=== PATIENT | male | born 1985 | race African-American/Black ===

== ENCOUNTER → 2017-04-19 | Outpatient (CLI) | payer OTHER ==
--- NOTE | 2017-04-20 14:24 | ECHOF ---
Referral Reason:Sleep Apnea HTN HEART FAILURE MEASUREMENTS -------- HEIGHT: 190.5 cm WEIGHT: 190.5 kg BP: 146/81 RVIDd: 2.9 cm (< 3.3) IVSd: 1.7 cm (0.6 - 1.1) LVIDd: 5.1 cm (3.9 - 5.3) LVPWd: 1.7 cm (0.6 - 1.1) IVSs: 2.1 cm LVIDs: 3.3 cm LVPWs: 2.1 cm LA Diam: 3.5 cm (2.7 - 3.8) Ao Diam: 3.4 cm (2.0 - 3.7) AV Cusp: 3.0 cm (1.5 - 2.6) MV EXCURSION: 22.907 mm (> 18.000) MV EF SLOPE: 100 mm/s (70 - 150) EPSS: 0.7 cm MV E Tor: 1.18 m/s MV DecT: 238 ms MV A Tor: 0.62 m/s MV E/A Ratio: 1.91 FINDINGS -------- Sinus rhythm. This was a technically good study. The left ventricular size is normal. There is severe concentric left ventricular hypertrophy. Ove rall left ventricular systolic function is normal with, an EF between 55 - 60 %. The right ventricle is normal in size. The left atrial size is normal. The right atrium is normal in size. The aortic valve was not well visualized. Mild mitral annular calcification present. The tricuspid valve appears structurally normal. There is no pulmonic regurgitation present. The aortic root size is normal. IVC Not well visulized. There is no pericardial effusion. CONCLUSIONS -------- 1. Sinus rhythm. 2. This was a technically good study. 3. The left ventricular size is normal. 4. There is severe concentric left ventricular hypertrophy. 5. Overall left ventricular systolic function is normal with, an EF between 55 - 60 %. 6. The right ventricle is normal in size. 7. The left atrial size is normal. 8. The right atrium is normal in size. 9. The aortic valve was not well visualized. 10. Mild mitral annular calcification present. 11. The tricuspid valve appears structurally normal. 12. There is no pulmonic regurgitation present. 13. The aortic root size is normal. 14. IVC Not well visulized. 15. There is no pericardial effusion. SCIENTIFIC SOFTWARE DEVELOPER: Mendy Parker RDCS
== END | disposition home or self-care (01) ==
LOC: RADECHMAIN 15:46
PROVIDERS: ATTEND Specialist
DX: I51.7 Cardiomegaly (principal); I05.8 Other rheumatic mitral valve diseases; G47.30 Sleep apnea, unspecified
CPT/HCPCS: C8929; Q9957; 93306

== ENCOUNTER → 2017-05-18 | Outpatient (CLI) | payer OTHER ==
--- NOTE | 2017-05-18 17:57 | PN ---
PROGRESS NOTE This is a 31-year-old, male patient with severe symptomatic obstructive sleep apnea. The patient was diagnosed having sleep apnea back in 2016 and back then the patient was found to have an AHI of 108. The patient was given a CPAP/BiPAP titration that was not optimal as the patient continued to have obstructive respiratory events. He was unable to tolerate the BiPAP and was having ongoing difficulties despite the various pressures that have been utilized. His BiPAP machine was set at a EPAP of 10, pressure support of 4 with a maximum pressure of 24 cm of water. He was given Nancy View full-face mask. At a later stage the patient came for a Pap nap and further adjustments were done. The patient was discharged and he was lost to followup until today when he comes into the sleep center and he is quite symptomatic from his obstructive sleep apnea as he is having chronic hypersomnia and sleepiness. In the same time he has gained around 35 pounds since his original study back in 2016. His blood pressure remains poorly controlled. In fact, his blood pressure is 196/107 on both arms. He snores and quits breathing. He is somnolent and sleepy throughout the day. His current [place] Score is at 16. BP is 196/100, pulse 92, respirations 20, temperature 98.6, BMI 54.7, saturation is 96% on room air. General appearance: Morbidly obese, calm comfortable, not in acute distress. Head is atraumatic, normocephalic. Neck is supple. There is no JVD. No goiter or neck masses. Mallampati class 4. Lungs clear to auscultation. Diminished in lung bases. Heart sounds are regular rate and rhythm. Normal S1, S2. No S3, S4. No murmurs. Abdomen is soft. Organs cannot be adequately assessed due to his morbid obesity. Neurologic: The patient awake, alert and oriented x3. There is no focal or neurological deficits. Psychiatric: The patient has appropriate mood and affect. IMPRESSION: 1. Severe symptomatic obstructive sleep apnea AHI of 108 at baseline based on a sleep study that was done in 2015. Patient has failed CPAP/BiPAP titration. 2. Morbid obesity with a BMI of 54.7. 3. Chronic hypersomnia, Bedford score of 16. 4. Hypertension, the blood pressure remains poorly controlled. 5. Previous history of tonsillectomy/adenoidectomy. PLAN: This patient has failed CPAP/BiPAP treatment. He will be referred to ENT for a surgical evaluation. He will be seeing Dr. Miller Velasquez. He may need to be considered for surgical options for treatment of obstructive sleep apnea as the patient has not been able to tolerate CPAP/BiPAP. One option for this patient would be lower jaw advancement as maxillomandibular advancement as he has enlargement of the entire upper airway for expansion to the skeletal framework that encircled the airway. He is open for these types of interventions and he will have his surgical evaluation with ENT physician and all of the records were forwarded to him. The patient will also need to be followed up with his primary care physician regarding his poorly controlled blood pressure. We will continue to follow. MMODL / IJN: [id number] /
== END | disposition home or self-care (01) ==
LOC: SLEEP 15:16
PROVIDERS: ATTEND Internal Medicine Critical Care Medicine
DX: G47.33 Obstructive sleep apnea (adult) (pediatric) (principal); E66.01 Morbid (severe) obesity due to excess calories; I10 Essential (primary) hypertension; Z90.89 Acquired absence of other organs; Z68.43 Body mass index [BMI] 50.0-59.9, adult; Z99.89 Dependence on other enabling machines and devices

== ENCOUNTER 2017-07-26 09:31 | Day surgery (SDC) | payer OTHER ==
[2017-07-22 16:01] VITALS: BMI 52.9
[~2017-07-26 09:31] MED LIST: LACTATED RINGERS 1,000 ML IV SCH
[2017-07-26 10:08] VITALS: RESP 16; TEMP 98.2
[2017-07-26 10:20] LABS: Glucose,Whole Blood 108 mg/dL (75-99)
[2017-07-26] MEDS ORDERED: PROPOFOL 10 MG/ML 20 ML VIAL IV ONE (10:55)
--- NOTE | 2017-07-26 11:22 | P.PCN ---
Date of Procedure: 07/26/17 Procedure(s) Performed: Procedure: Total colonoscopy. Preoperative diagnosis: Intermittent rectal bleeding. Postoperative diagnoses: Low-grade internal hemorrhoids without any bleeding at the time of this exam, otherwise, exam within normal limits. Preparation: HalfLytely prep. Sedation: Was provided by anesthesia. Brief clinical history: The patient is a 32-year-old male who is scheduled for this evaluation because of intermittent rectal bleeding for the last several months. The patient had no prior exam or family history of inflammatory bowel disease. He has no abdominal complaints, change in bowel habits or anemia. No family history of colon cancer. Procedure: With the patient on his left lateral decubitus position and after informed consent and adequate sedation, the perianal area was inspected and it did not show any fissures or fistulas. There were no masses felt on digital rectal examination. The Olympus CFQ 160L endoscope was then inserted in the rectum in the usual fashion and advanced to the cecum. The mucosa appeared healthy. No polyps or tumors were seen or any obvious diverticular disease or other pathology. I retroflexed the endoscope in the rectum before the endoscope was withdrawn. Low-grade internal hemorrhoids were noted but there was no evidence of bleeding. The patient tolerated the procedure well. Plan: The patient was reassured. Discussed dietary measures and local care for hemorrhoids. He will follow up with you as planned I recommended repeat exam at age 51.
[2017-07-26 11:36] VITALS: BP 148/94; PULSE 70
--- NOTE | 2017-07-31 02:45 | CDI ---
Outpatient Documentation Clarification Form Date: 07/31/2017 CDS/Attorney Lawyer Name: Teo Alston Phone: If any questions, call [facility] at [phone] Patient Name: Adi Sparks Admit Date: 07/26/2017 Discharge Date: 07/26/2017 ATTENTION: The [facility] Coding Staff appreciate your assistance in clarifying documentation. Please respond to the clarification below the line at the bottom and electronically sign. The [facility] Coding staff will review the response and follow-up if needed. Please note: Queries are made part of the Legal Health Record. If you have any questions, please contact the [facility]. Dear Dr. Herzog, Indication for colonoscopy was rectal bleeding; Post-operative diagnosis was Internal and external hemorrhoids, Please clarify the etiology of Rectal Bleeding was this secondary to hemorrhoids or incidental finding Based on your clinical opinion please clarify the etiology of Rectal Bleeding and relation with hemorrhoids Thank you for your kind consideration. MTDD
== END 2017-07-26 12:04 | disposition home or self-care (01) ==
LOC: ORWHC2ENDO 09:31
DX: K62.5 Hemorrhage of anus and rectum (principal); K64.8 Other hemorrhoids; E11.9 Type 2 diabetes mellitus without complications; I10 Essential (primary) hypertension; G47.33 Obstructive sleep apnea (adult) (pediatric); E66.01 Morbid (severe) obesity due to excess calories; F17.200 Nicotine dependence, unspecified, uncomplicated; Z79.891 Long term (current) use of opiate analgesic; Z79.899 Other long term (current) drug therapy; Z68.43 Body mass index [BMI] 50.0-59.9, adult
CPT/HCPCS: 45378; J2704

== ENCOUNTER → 2017-12-21 | Outpatient (CLI) | payer OTHER ==
--- NOTE | 2017-12-21 18:02 | PN ---
PROGRESS NOTE Adi is a 32-year-old male patient with severe symptomatic obstructive sleep apnea. I diagnosed this patient with NOREEN back in 2016 and at that time, the patient had an AHI of 108. He was given CPAP/BiPAP titration. The titration itself was not optimal as the patient continued to have obstructive respiratory events. He was unable to tolerate the BiPAP at various pressures. Will trial out different BiPAP settings and we trialed out before mask interfaces and all these treatments failed on him as the patient was unable to tolerate the treatment on his face. During this time, he started gradually gaining weight, and currently he is up to 400 pounds. During his last evaluation in my office back in May 2017 the patient showed interest towards surgical options. He was going to be seen by Dr. Miller Velasquez for surgical options regarding obstructive sleep apnea. The patient had a consultation with ENT and unfortunately the options that were offered to him were not appealing as the patient did not want to go with the surgical approaches that were offered to him. He is coming back to see me. He is more symptomatic. He is sleeping all the time. He is very drowsy and sleepy throughout the day. His [place] score is 24. As mentioned, he continues to steadily gained weight and he has gained about 14 pounds since his original titration back in 2016. On today's evaluation we discussed further options. One option that I have suggested to this patient is Inspire therapy which is surgically implanted device for obstructive sleep apnea that can replace the CPAP therapy. This is a small generator with breathing sensor leads and stimulation leads to the throat muscles that can reduce the severity of obstructive sleep apnea at least in his condition. He was agreeable to that and he wanted to consider further options including this possibility. PHYSICAL EXAMINATION: His current vitals: His blood pressure is 150/88, pulse 72, respirations 16, temperature 98 saturation 95% on room air. Weight is 400, height is 6 feet 1 inch. GENERAL APPEARANCE: Obese, calm, comfortable. HEENT: Atraumatic, normocephalic. NECK: Supple. No JVD. No goiter or neck masses. Mallampati class IV. LUNGS: Clear to auscultation. HEART: Sounds regular. Normal S1, S2. No S3. No murmurs. ABDOMEN: Soft and nontender. EXTREMITIES: No edema. No cyanosis or clubbing. NEUROLOGIC: Alert and oriented x3. No focal neurological deficit. PSYCHIATRIC: Negative for anxiety or depression at this point in time. IMPRESSION: 1. Severe symptomatic obstructive sleep apnea with an AHI of 108 at baseline based on a polysomnogram that was done in 2016. The patient has failed CPAP/BiPAP therapy. He has become more symptomatic and he has progressively gained weight and currently he is weighing 400 pounds. 2. Excessive hypersomnia [place] score of 24. 3. Obesity with a BMI of 52.7. 4. Hypertension. 5. Previous tonsillectomy and adenoidectomy. PLAN: This patient has failed CPAP and BiPAP therapy. Obviously he needs to engage himself in an aggressive weight loss progress program and he has also discussed this with his primary care physician, Dr. Stanford. As far as other options for NOREEN treatment, one option that is being considered is the Inspire upper airway stimulation therapy through a small generator can implanted under the skin and help with severity of obstructive sleep apnea. For that reason, I am making a referral to Dr. Katherine Gallardo at [facility]. The patient was given the appropriate contact number, #. The patient will contact her and make an appointment and he will see back in followup and discuss the treatment options he was offered by a specialized ENT surgeon who has significant expertise in NOREEN treatment. Based on that we will make further recommendations. Meanwhile, avoid driving as the patient has a high risk of falling sleep while driving or operating any other heavy machinery. He is excessively symptomatic at this point in time. MMODL / IJN: [id number] /
== END | disposition home or self-care (01) ==
LOC: SLEEP 15:01
PROVIDERS: ATTEND Internal Medicine Critical Care Medicine
DX: G47.33 Obstructive sleep apnea (adult) (pediatric) (principal); E66.9 Obesity, unspecified; I10 Essential (primary) hypertension; Z90.89 Acquired absence of other organs; Z68.43 Body mass index [BMI] 50.0-59.9, adult; Z99.89 Dependence on other enabling machines and devices

== ENCOUNTER → 2020-07-24 | Outpatient (CLI) | payer OTHER ==
--- NOTE | 2020-07-24 10:13 | XR ---
EXAMINATION TYPE: XR thoracic spine 2V DATE OF EXAM: 07/24/2020 CLINICAL HISTORY: pain TECHNIQUE: Frontal, lateral, and swimmer's view of thoracic spine are obtained. COMPARISON: None. FINDINGS: Thoracic spine show satisfactory alignment without evidence of acute fracture or dislocatio n. Vertebral body heights are preserved. Disc spaces are well preserved. Visualized ribs are unrem arkable. IMPRESSION: No acute fracture or dislocation is seen in the thoracic spine. ICD 10 NO FRACTURE, INIT IAL EVALUATION
--- NOTE | 2020-07-24 10:16 | XR ---
EXAMINATION TYPE: XR shoulder complete BILAT DATE OF EXAM: 07/24/2020 CLINICAL HISTORY: pain TECHNIQUE: Three views of the right shoulder are obtained. COMPARISON: None FINDINGS: There is no acute fracture/dislocation evident. The acromioclavicular and glenohumeral lola int spaces appear mildly narrowed. The visualized ribs are intact and unremarkable. IMPRESSION: 1. There is no acute fracture or dislocation. ICD 10 NO FRACTURE, INITIAL EVALUATION EXAMINATION TYPE: XR shoulder complete BILAT DATE OF EXAM: 07/24/2020 CLINICAL HISTORY: pain COMPARISON: NONE TECHNIQUE: Three views of the left shoulder are obtained. FINDINGS: There is no acute fracture/dislocation evident. The acromioclavicular and glenohumeral lola int spaces appear mildly narrowed. The visualized ribs are intact and unremarkable.
--- NOTE | 2020-07-24 10:18 | XR ---
EXAMINATION TYPE: XR lumbar spine 2 or 3V DATE OF EXAM: 07/24/2020 CLINICAL HISTORY: pain TECHNIQUE: Three views of the lumbar spine are submitted. COMPARISON: None. FINDINGS: There are 5 lumbar type vertebral bodies identified. The lumbar spine shows satisfactory alignment w ithout evidence of acute fracture or dislocation. Vertebral body heights are within normal limits. Disc spaces are within normal limits. The overlying soft tissue appears unremarkable. IMPRESSION: No acute fracture or dislocation is seen in the lumbar spine. ICD 10 NO FRACTURE, INITIAL EVALUATION
== END | disposition home or self-care (01) ==
LOC: RADXRMAIN 09:22
PROVIDERS: ATTEND Family Medicine
DX: M54.5 Low back pain (principal); M25.512 Pain in left shoulder; M25.511 Pain in right shoulder
CPT/HCPCS: 72070; 72100

== ENCOUNTER 2020-12-28 17:42 | Emergency (ER) | payer OTHER ==
[2020-12-28 18:18] VITALS: BP 156/93; PULSE 95; RESP 20; TEMP 98.7
--- NOTE | 2020-12-28 18:40 | ED ---
General Adult HPI - General Chief complaint: Allergic Reaction Stated complaint: Itching & irritation Time Seen by Provider: 12/28/20 18:23 Source: patient, family, RN notes reviewed Mode of arrival: ambulatory Limitations: no limitations - History of Present Illness Initial comments: Patient is a pleasant 35-year-old male presenting to the emergency department for itching. Onset of symptoms was a past couple of days. Patient questions if this soap he is using is related to this. Patient has not noticed any rash however feels itchy. Patient states this is several areas including his legs and buttocks and groin. Patient states that seems to migrate different areas at different times. Patient states the symptoms also waxing waning and currently are mild. - Related Data Home Medications Medication Instructions Recorded Confirmed HYDROcodone/APAP 7.5-325MG [[place] 1 tab PO Q6HR PRN 07/22/17 07/26/17 7.5-325] amLODIPine [Norvasc] 5 mg PO DAILY 07/22/17 07/26/17 hydroCHLOROthiazide [Hydrodiuril] 50 mg PO DAILY 07/22/17 07/26/17 Previous Rx's Medication Instructions Recorded predniSONE 50 mg PO DAILY #5 tab 12/28/20 Allergies Allergy/AdvReac Type Severity Reaction Status Date / Time No Known Allergies Allergy Verified 07/26/17 10:05 Review of Systems ROS Statement: Those systems with pertinent positive or pertinent negative responses have been documented in the HPI. ROS Other: All systems not noted in ROS Statement are negative. Constitutional: Denies: fever Eyes: Denies: eye pain ENT: Denies: ear pain Respiratory: Denies: cough Cardiovascular: Denies: chest pain Endocrine: Denies: fatigue Gastrointestinal: Denies: nausea Genitourinary: Denies: urgency Musculoskeletal: Denies: back pain Skin: Reports: as per HPI, pruritus Neurological: Denies: weakness Past Medical History Past Medical History: Diabetes Mellitus, Hypertension, Sleep Apnea/CPAP/BIPAP Additional Past Medical History / Comment(s): supposed to use CPAP, swelling legs & feet, joint & back pain, rectal bleeding for awhile, "pre-diabetic" History of Any Multi-Drug Resistant Organisms: None Reported Past Surgical History: Adenoidectomy, Tonsillectomy Additional Past Surgical History / Comment(s): myringotomy & tubes Past Anesthesia/Blood Transfusion Reactions: No Reported Reaction Past Psychological History: No Psychological Hx Reported Smoking Status: Current every day smoker Past Alcohol Use History: Occasional Past Drug Use History: Marijuana - Past Family History Mother Family Medical History: No Reported History General Exam Limitations: no limitations General appearance: alert, in no apparent distress Head exam: Present: normocephalic Eye exam: Present: normal appearance ENT exam: Present: normal oropharynx Neck exam: Present: normal inspection Respiratory exam: Present: normal lung sounds bilaterally Cardiovascular Exam: Present: regular rate, normal rhythm exam: Present: normal inspection Extremities exam: Present: normal inspection Neurological exam: Present: alert Psychiatric exam: Present: normal affect, normal mood Skin exam: Present: normal color. Absent: rash Course Vital Signs 12/28/20 18:16 Temperature 98.7 F Pulse Rate 95 Respiratory 20 Rate Blood Pressure 156/93 O2 Sat by Pulse 95 Oximetry Disposition Clinical Impression: Pruritus Disposition: HOME SELF-CARE Condition: Stable Instructions (If sedation given, give patient instructions): Antihistamine (By mouth), Allergies (ED) Additional Instructions: Use soap without additives such as Dove. When showering avoid warm or hot showers. Ambg-set-fewdjye Benadryl as needed. If Benadryl makes her drowsy you may try to substitute Claritin or Mai instead. Prescription for steroids has been sent to pharmacy if needed. Please follow-up with primary care physician in the next couple days for recheck. Return for rash, fever, worsening or changing symptoms or other concerns. Prescriptions: predniSONE 50 mg PO DAILY #5 tab Is patient prescribed a controlled substance at d/c from ED?: No Referrals: Brandon Stanford MD [Primary Care Provider] - 1-2 days Time of Disposition: 18:39
[2020-12-28] MEDS: diphenhydrAMINE 50 MG CAP PO STA (18:48)
== END 2020-12-28 18:52 | disposition home or self-care (01) ==
LOC: EC 17:42
DX: L29.9 Pruritus, unspecified (principal); I10 Essential (primary) hypertension; E11.9 Type 2 diabetes mellitus without complications; G47.30 Sleep apnea, unspecified; F17.200 Nicotine dependence, unspecified, uncomplicated; F12.90 Cannabis use, unspecified, uncomplicated
CPT/HCPCS: 99282

== ENCOUNTER → 2021-01-14 | Outpatient (CLI) | payer OTHER ==
--- NOTE | 2021-01-14 18:05 | PN ---
PROGRESS NOTE This is a 35-year-old male patient with severe symptomatic obstructive sleep apnea diagnosed several years back with an AHI of 109. The patient is post UPPP. The patient has demonstrated poor compliance over the years. He stated he has not been able to tolerate BiPAP therapy. I have worked with this patient extensively in the past; tried different pressures, tried different mask interfaces, without any good success. His last evaluation with me was around 1/2 years ago. Currently he is coming back for re-evaluation, as the patient has become quite symptomatic and his functionality is obviously affected and the patient has become significantly somnolent and sleepy. His weight is up to 426 pounds, which is around 20 pounds' weight gain compared to 2-1/2 years ago. He has a functional VPAP unit which is set at a pressure of 17/30 cm of water. Based on the compliance data, the patient has not used his machine over the past one year. He is tired. He is sleepy. He is somnolent. He can fall asleep at any time and his functionality is affected. His [place] score is at 24. At the same time, he has developed increased swelling in the lower extremities and his blood pressure today is 195/92. He is not aware of the different blood pressure medication that he is taking and he does not have his medication list with him. He tells me that he has been followed up with Dr. Brandon Stanford on an outpatient basis regarding his hypertension. No recent CVA. No recent cardiac arrhythmias. He is a morbidly obese -[place] male patient. REVIEW OF SYSTEMS: Fourteen-point review of systems was done and it is positive for chronic hypersomnia and sleepiness and difficulty with functionality, poor sleep quality, frequent arousals due to sleep apnea, increased lower extremity edema, unable to lie down flat. He is a mouth breather. PHYSICAL EXAMINATION: VITAL SIGNS: BP is 195/92, pulse 91, respirations 24, temperature 97.6, saturation 97% on room air. Height is 6 feet 2 inches, weight is 426, BMI 54.9. [place] score 24. GENERAL APPEARANCE: Calm, comfortable. HEAD: Atraumatic, normocephalic. NECK: Supple. No JVD. No goiter or neck masses. Mallampati class 4. LUNGS: Diminished. Otherwise clear. HEART: Heart sounds are regular. Positive S1, S2. No S3, S4. No murmurs. ABDOMEN: Obese. Organs cannot be palpated. There is no direct tenderness, rebound tenderness or guarding. EXTREMITIES: Plus 1 to 2 pitting edema. There is no cyanosis or clubbing. IMPRESSION: 1. Severe obstructive sleep apnea, AHI of 109, symptomatic due to suboptimal BiPAP use. In fact, the patient has not used his machine at all over the past one year. 2. Excessive hypersomnia secondary to above. [place] score is 24. 3. Severe nocturnal oxygen desaturation secondary to obstructive sleep apnea. 4. Morbid obesity with interval 20-pound weight gain. Current body mass index is 54.9. 5. Possible obesity hypoventilation syndrome, as the patient has excessive edema in the lower extremities bilaterally, and he needs to be worked up for cardiac disease. 6. Hypertension, poorly controlled blood pressure medication. Question compliance on the drugs, as the patient does not even recall the different brands of the blood pressure medication and he does not carry a medication list with him. PLAN: 1. I urged this patient to go back to his primary care physician for tighter blood pressure control. 2. In regard to his treatment of sleep apnea, the patient has a functioning BiPAP unit that needs to be reactivated. The pressure will be kept at 17/30 cm of water. I gave him a DreamWear [id number] full-face mask, medium size, which we tried extensively and educated the patient on its use. The patient seems to be liking this style of mask. He is going to give it a try and come and see me back in a month's time in followup. Sleep hygiene measures are obviously abnormal, and the patient was encouraged to optimize and regulate his sleep schedule. Comorbidities need to be handled by his primary care physician, especially the poorly controlled blood pressure. Will continue to follow. MMODL / IJN: [id number] /
== END ==
LOC: SLEEP 14:14
PROVIDERS: ATTEND Internal Medicine Critical Care Medicine
DX: G47.33 Obstructive sleep apnea (adult) (pediatric) (principal); G47.36 Sleep related hypoventilation in conditions classified elsewhere; E66.01 Morbid (severe) obesity due to excess calories; I10 Essential (primary) hypertension; Z99.89 Dependence on other enabling machines and devices; Z68.43 Body mass index [BMI] 50.0-59.9, adult

== ENCOUNTER → 2021-02-25 | Outpatient (CLI) | payer OTHER ==
--- NOTE | 2021-02-25 18:18 | PN ---
PROGRESS NOTE This patient is being seen for a followup regarding his obstructive sleep apnea treatment. Overall, he is still doing poorly. He remains somnolent and sleepy during the day. He continues to have an irregular sleep schedule. He is unable to regulate his sleep schedule, as the patient goes to bed very late, around 2 to 3 a.m. He wakes up at 6 a.m. in the morning to drop his kid to school. After that he comes back home and he sleeps further. He takes naps during the day. I checked his compliance, and despite my ongoing efforts to optimize his obstructive sleep apnea, I have not been able to do so. His weight continues to go up. He used to weigh 426 pounds and currently he is up to 432. He is currently on a BiPAP pressure of 17/13 cm of water. After an extensive search trial for various masks, the patient settled on a DreamWear [id number] mask, medium wide. Nevertheless, based on the compliance data that was collected over the past 30 days, the patient has utilized his machine only 1/30 days and he has achieved only 1.8 hours of BiPAP use. Leak was 46 L/minute. AHI was down to 40 on that day of use. [place] score remains quite high. His blood pressure is high. He has poorly controlled hypertension. He is somnolent and sleepy during the day. As such, I would say there is no improvement in his condition at all. He continues to make commitments to improve his lifestyle, and on each occasion I think that he is going to fail to do so. He wants to talk to his primary care physician about bariatric surgery options, also. REVIEW OF SYSTEMS: Fourteen-point review of system was done. He continues to be somnolent and sleepy and tired with poor sleep quality. He has chronic edema, lower extremities. Blood pressure remains poorly controlled. No seizure activity. No falls. No motor vehicle accident because of feeling drowsy or sleepy. PHYSICAL EXAMINATION: BP is 188/117, pulse 94, respirations 20, temperature , saturation 92% on room air. Height is 6 feet 2 inches, weight is 432, BMI 55.4. [place] score is 24. GENERAL APPEARANCE: Obese, calm, comfortable. HEAD: Atraumatic, normocephalic. NECK: Supple. No JVD. No goiter or neck masses. Mallampati class IV. LUNGS: Diminished. Breath sounds bilaterally. Otherwise clear. HEART: Heart sounds are regular rate and rhythm. Normal S1, S2. No S3, S4. No murmurs. Abdomen is obese, soft, non-tender. Organs cannot be accurately palpated. EXTREMITIES: Chronic edema. There is no cyanosis or clubbing at this point. IMPRESSION: Severe symptomatic obstructive sleep apnea. The patient carries an AHI of 109. He is post UPPP. He demonstrates poor compliancy to CPAP therapy. He has very poor sleep hygiene. He has a very poor sleep schedule. He has very poor commitment to BiPAP treatment. He is not making an effort to go on his machine and the compliancy data clearly reflects that, as the patient has not worn his machine at all over the past 30 days. He tried it only one night and he barely achieved 2 hours. I am not able to offer much to this patient. I asked him to continue using his BiPAP. I counseled him extensively. He will be seeing his primary care physician for bariatric surgery options. Meanwhile, the patient will be kept on a DreamWear medium wide full-face mask. I switched him to an automatic VPAP mode at a pressure minimum of 10, maximum of 22, with a pressure support of 4. I will see him back in 6 months' time. Prognosis is poor due to his poor compliance and poor followup on treatment. SEBASTIEN / BRUCE: [id number] /
== END ==
LOC: SLEEP 16:12
PROVIDERS: ATTEND Internal Medicine Critical Care Medicine
DX: G47.33 Obstructive sleep apnea (adult) (pediatric) (principal); F17.200 Nicotine dependence, unspecified, uncomplicated; Z99.89 Dependence on other enabling machines and devices

== ENCOUNTER → 2021-02-26 | Outpatient (CLI) | payer OTHER ==
--- NOTE | 2021-02-26 14:02 | XR ---
EXAMINATION TYPE: XR lumbar spine 2 or 3V DATE OF EXAM: 02/26/2021 CLINICAL HISTORY: pain TECHNIQUE: Three views of the lumbar spine are submitted. COMPARISON: None. FINDINGS: There are 5 lumbar type vertebral bodies identified. The lumbar spine shows satisfactory alignment w ithout evidence of acute fracture or dislocation. Vertebral body heights are within normal limits. Disc spaces are within normal limits. The overlying soft tissue appears unremarkable. IMPRESSION: No acute fracture or dislocation is seen in the lumbar spine. ICD 10 NO FRACTURE, INITIAL EVALUATION
--- NOTE | 2021-02-26 14:03 | XR ---
EXAMINATION TYPE: XR Hip Bilateral Complete DATE OF EXAM: 02/26/2021 CLINICAL HISTORY: pain TECHNIQUE: AP and frogleg views of the bilateral hips are obtained. COMPARISON: None. FINDINGS: There is no acute fracture/dislocation evident. The joint space appears within normal li mits. The overlying soft tissue appears unremarkable. IMPRESSION: 1. There is no acute fracture or dislocation. ICD 10 NO FRACTURE, INITIAL EVALUATION
== END | disposition home or self-care (01) ==
LOC: RADXRMAIN 12:56
PROVIDERS: ATTEND Family Medicine
DX: M25.569 Pain in unspecified knee (principal); M25.551 Pain in right hip
CPT/HCPCS: 72100; 73521

== ENCOUNTER 2022-01-14 07:27 | Emergency (ER) | payer MEDICARE, OTHER ==
[2022-01-14 07:35] VITALS: RESP 20; TEMP 98.4
--- NOTE | 2022-01-14 07:51 | ED ---
ENT HPI - General Chief complaint: ENT Stated complaint: foregin body in ear Time Seen by Provider: 01/14/22 07:36 Source: patient, RN notes reviewed, old records reviewed Mode of arrival: ambulatory Limitations: no limitations - History of Present Illness Initial comments: 36-year-old nontoxic-appearing gentleman presents to the emergency room with pos sible foreign body, cotton from Q-tip, stuck in his left ear since around 6:30 this morning. MD complaint: foreign body -: hour(s) (1) Location: L ear Severity scale (1-10): 0 - Related Data Home Medications Medication Instructions Recorded Confirmed HYDROcodone/APAP 7.5-325MG [[place] 1 tab PO Q6HR PRN 07/22/17 07/26/17 7.5-325] amLODIPine [Norvasc] 5 mg PO DAILY 07/22/17 07/26/17 hydroCHLOROthiazide [Hydrodiuril] 50 mg PO DAILY 07/22/17 07/26/17 Previous Rx's Medication Instructions Recorded predniSONE 50 mg PO DAILY #5 tab 12/28/20 Allergies Allergy/AdvReac Type Severity Reaction Status Date / Time No Known Allergies Allergy Verified 07/26/17 10:05 Review of Systems ROS Statement: Those systems with pertinent positive or pertinent negative responses have been documented in the HPI. ROS Other: All systems not noted in ROS Statement are negative. Past Medical History Past Medical History: Diabetes Mellitus, Hypertension, Sleep Apnea/CPAP/BIPAP Additional Past Medical History / Comment(s): supposed to use CPAP, swelling legs & feet, joint & back pain, rectal bleeding for awhile, "pre-diabetic" History of Any Multi-Drug Resistant Organisms: None Reported Past Surgical History: Adenoidectomy, Tonsillectomy Additional Past Surgical History / Comment(s): myringotomy & tubes Past Anesthesia/Blood Transfusion Reactions: No Reported Reaction Past Psychological History: No Psychological Hx Reported Smoking Status: Current every day smoker Past Alcohol Use History: Occasional Past Drug Use History: Marijuana - Past Family History Mother Family Medical History: No Reported History General Exam Limitations: no limitations General appearance: alert, in no apparent distress Head exam: Present: atraumatic, normocephalic ENT exam: Present: mucous membranes moist Expanded Ear exam: Present: normal external inspection, other (No erythema, no evidence of foreign body. There is hole left eardrum from prior myringotomy tube) Neck exam: Present: full ROM. Absent: tenderness, meningismus Respiratory exam: Absent: respiratory distress, accessory muscle use Cardiovascular Exam: Present: tachycardia GI/Abdominal exam: Present: soft Neurological exam: Present: alert, oriented X3, normal gait Psychiatric exam: Present: normal affect, normal mood Skin exam: Present: warm, dry, normal color. Absent: cyanosis, diaphoretic, erythema Course Vital Signs 01/14/22 01/14/22 07:33 08:01 Temperature 98.4 F Pulse Rate 102 H 98 Respiratory 20 20 Rate Blood Pressure 205/130 174/99 O2 Sat by Pulse 97 96 Oximetry Medical Decision Making - Medical Decision Making Patient presents with a possible foreign body, cotton from Q-tip in his left ear. On exam there is no evidence of foreign body. No erythema no drainage. Right ear tympanic membrane normal, no foreign body. Patient's blood pressure is elevated however he states that he does not want to take blood pressure medication despite being prescribed by his PCP. Patient declining treatment for hypertension. He denies any chest pain or shortness of breath. No nausea vomiting diarrhea or fevers. No visual changes or headaches. I did explain to the patient, that uncontrolled hypertension can cause heart attack, stroke, kidney failure and . He was instructed to follow-up with his primary care doctor for continuation of care and ENT as needed. Case discussed with Dr. Rodriguez Disposition Clinical Impression: Hypertension Disposition: HOME SELF-CARE Condition: Good Instructions (If sedation given, give patient instructions): Earache (ED), Hypertension (ED) Additional Instructions: Follow-up with an ENT doctor as needed. Please discuss high blood pressure management with your primary care doctor as high blood pressure can cause stroke, heart attack, kidney failure and many other problems if not adequately controlled. Is patient prescribed a controlled substance at d/c from ED?: No Referrals: Brandon Stanford MD [Primary Care Provider] - 1-2 days Roger Singh MD [STAFF PHYSICIAN] - 1-2 days Time of Disposition: 07:50
[2022-01-14 08:07] VITALS: BP 174/99; PULSE 98
== END 2022-01-14 08:01 | disposition home or self-care (01) ==
LOC: EC 07:27
DX: I10 Essential (primary) hypertension (principal); E11.9 Type 2 diabetes mellitus without complications; F17.200 Nicotine dependence, unspecified, uncomplicated; Z79.84 Long term (current) use of oral hypoglycemic drugs; Z99.89 Dependence on other enabling machines and devices; Z79.899 Other long term (current) drug therapy
CPT/HCPCS: 99282

== ENCOUNTER 2022-09-17 16:57 | Emergency (ER) | payer MEDICARE ==
[2022-09-17 17:14] VITALS: BP 133/68; PULSE 86; RESP 18; TEMP 98.4
[2022-09-17 17:57] LABS: Basophils % (A) 0 %; Eosinophils # (A) 0.3 k/uL (0-0.7); Eosinophils % (A) 4 %; HCT 47.8 % (39.0-53.0); HGB 16.3 gm/dL (13.0-17.5); Lymphocytes % (A) 27 %; MCH 30.6 pg (25.0-35.0); MCHC 34.2 g/dL (31.0-37.0); MCV 89.5 fL (80.0-100.0); Mean Platelet Volume 7.5; Monocytes # (A) 0.4 k/uL (0-1.0); Monocytes % (A) 6 %; Neutrophils # (A) 4.5 k/uL (1.3-7.7); Neutrophils % (A) 61 %; Platelet Count 261 k/uL (150-450); RBC 5.35 m/uL (4.30-5.90); RDW 12.9 % (11.5-15.5); WBC 7.3 k/uL (3.8-10.6)
--- NOTE | 2022-09-17 18:07 | XR ---
EXAMINATION TYPE: XR chest 2V DATE OF EXAM: 09/17/2022 5:50 PM COMPARISON: Chest radiographs from TECHNIQUE: XR chest 2V Frontal and lateral views of the chest. CLINICAL INDICATION:Male, 37 years old with history of chest pain; FINDINGS: Lungs/Pleura: Eventration of the diaphragm. There is no evidence of pleural effusion, focal consolida tion, or pneumothorax. Pulmonary vascularity: Unremarkable. Heart/mediastinum: Cardiomediastinal silhouette is unremarkable. Musculoskeletal: No acute osseous pathology. IMPRESSION: No acute cardiopulmonary disease/process.
[2022-09-17 18:08] LABS: ALT 17 U/L (4-49); African American GFR (CKD) >90 (>60 ml/min/1.73 sqM); Anion Gap 8 mmol/L; Blood Urea Nitrogen 18 mg/dL (9-20); Calcium 9.5 mg/dL (8.4-10.2); Carbon Dioxide 35 mmol/L (22-30); Chloride 93 mmol/L (98-107); Glucose 102 mg/dL (74-99); Non-African American GFR(CKD) >90 (>60 ml/min/1.73 sqM); Sodium 136 mmol/L (137-145); Total Bilirubin 0.6 mg/dL (0.2-1.3)
--- NOTE | 2022-09-17 18:09 | ED ---
Chest Pain HPI - General Chief Complaint: Chest Pain Stated Complaint: chest pain Time Seen by Provider: 09/17/22 17:55 Source: patient, RN notes reviewed, old records reviewed Mode of arrival: ambulatory - History of Present Illness Initial Comments: This is a 37-year-old male to the emergency department today. Patient presents today for evaluation of chest pain anterior chest pain left-sided chest pain. History of high blood pressure history of diabetes symptoms began when he awoke shortly after he awakened. Patient is patient was worse to touch which is pain that was different than normal. Patient is no travel or sick contacts no trauma no fevers no cough congestion and no current shortness of breath symptoms are significant improved patient concern from NAHOMY BRAXTON Complaint: chest pain -: unknown Onset: during rest, during exertion Pain Location: substernal, left chest Pain Radiation: none, LUE Severity scale (1-10): 3 Quality: tightness, heaviness Consistency: constant, intermittent Improves With: nothing Worsens With: nothing, exertion Other Symptoms: palpitations Treatments Prior to Arrival: none - Related Data Home Medications Medication Instructions Recorded Confirmed Ammonium Lactate Cream [Lac-Hydrin 1 applic TOPICAL DAILY 06/10/22 06/10/22 12% Cream] Furosemide [Lasix] 40 mg PO DAILY 06/10/22 06/10/22 HYDROcodone/APAP 10-325MG [[place] 1 tab PO Q6H PRN 06/10/22 06/10/22 10-325] amLODIPine 10 mg PO DAILY 06/10/22 06/10/22 Allergies Allergy/AdvReac Type Severity Reaction Status Date / Time No Known Allergies Allergy Verified 09/17/22 17:14 Review of Systems ROS Statement: Those systems with pertinent positive or pertinent negative responses have been documented in the HPI. ROS Other: All systems not noted in ROS Statement are negative. EKG Findings - EKG Comments: EKG Findings:: EKG is sinus 76 MT 155 QRS 126 QTc 429 Past Medical History Past Medical History: Diabetes Mellitus, Hypertension, Sleep Apnea/CPAP/BIPAP Additional Past Medical History / Comment(s): supposed to use CPAP, swelling legs & feet, joint & back pain, rectal bleeding for awhile, "pre-diabetic" History of Any Multi-Drug Resistant Organisms: None Reported Past Surgical History: Adenoidectomy, Tonsillectomy Additional Past Surgical History / Comment(s): myringotomy & tubes Past Anesthesia/Blood Transfusion Reactions: No Reported Reaction Past Psychological History: No Psychological Hx Reported Smoking Status: Current every day smoker Past Alcohol Use History: None Reported Past Drug Use History: Marijuana - Past Family History Mother Family Medical History: No Reported History General Exam General appearance: alert, in no apparent distress Head exam: Present: atraumatic, normocephalic, normal inspection Eye exam: Present: normal appearance, PERRL, EOMI. Absent: scleral icterus, conjunctival injection, periorbital swelling ENT exam: Present: normal exam, mucous membranes moist Neck exam: Present: normal inspection. Absent: tenderness, meningismus, lymphadenopathy Respiratory exam: Present: normal lung sounds bilaterally. Absent: respiratory distress, wheezes, rales, rhonchi, stridor Cardiovascular Exam: Present: regular rate, normal rhythm, normal heart sounds. Absent: systolic murmur, diastolic murmur, rubs, gallop, clicks GI/Abdominal exam: Present: soft, normal bowel sounds. Absent: distended, tenderness, guarding, rebound, rigid Extremities exam: Present: normal inspection, full ROM, normal capillary refill. Absent: tenderness, pedal edema, joint swelling, calf tenderness Back exam: Present: normal inspection Neurological exam: Present: alert, oriented X3, CN II-XII intact Psychiatric exam: Present: normal affect, normal mood Skin exam: Present: warm, dry, intact, normal color. Absent: rash Course Vital Signs 09/17/22 17:10 Temperature 98.4 F Pulse Rate 86 Respiratory 18 Rate Blood Pressure 133/68 O2 Sat by Pulse 97 Oximetry - Reevaluation(s) Reevaluation #1: 09/17/22 18:09 Medical records reviewed Reevaluation #2: 09/17/22 18:09 Patient symptoms are improving Reevaluation #3: 09/17/22 19:46 Patient informed of results and questions answered Reevaluation #4: 09/17/22 20:06 Was pt. sent in by a medical professional or institution? @ -no Did you speak to anyone other than the patient for history? @ -no Did you review nursing and triage notes? @ -agree Were old charts reviewed? @ -no Differential Diagnosis? @ -prior EKG interpreted by me (3pts min.)? @ -yes X-rays interpreted by me (1pt min.)? @ -yes CT interpreted by me (1pt min.)? @ -no U/S interpreted by me (1pt. min.)? @ -no What testing was considered but not performed? (CT, X-rays, U/S, labs)? Why? @ -no What meds were considered but not given? Why? @ -no Did you discuss the management of the patient with other professionals? @ -no Did you reconcile home meds? @ -no Was smoking cessation discussed for >3mins.? @ -no Was critical care preformed (if so, how long)? @ -no Were there social determinants of health that impacted care today? How? (Homelessness, low income, unemployed, alcoholism, drug addiction, transportation, low edu. Level, literacy, decrease access to med. care, intermediate, rehab)? @ -no Was there de-escalation of care discussed even if they declined? (Discuss DNR or withdrawal of care, Hospice)? @ -no What co-morbidities impacted this encounter? (DM, HTN, Smoking, COPD, CAD, Cancer, CVA, Hep., AIDS, mental health diagnosis, sleep apnea, morbid obesity)? @ -no Was patient admitted / discharged? @ -dc Undiagnosed new problem with uncertain prognosis? @ -no Drug Therapy requiring intensive monitoring for toxicity (Heparin, Nitro, Insulin, Cardizem)? @ -no Were any procedures done? @ -no Diagnosis/symptom? @ -Chest pain atypical Acute, or Chronic, or Acute on Chronic? @ -acute Uncomplicated (without systemic symptoms) or Complicated (systemic symptoms)? @ -no Side effects of treatment? @ -no Exacerbation, Progression, or Severe Exacerbation] @ - Poses a threat to life or bodily function? @ -no Reevaluation #5: 09/17/22 19:46 Differential Chest Pain: Stable Angina, Unstable Angina, STEMI, NSTEMI Aortic Dissection, Pneumothorax, Musculoskeletal, Esophageal Spasm GERD, Cholecystitis, Pancreatitis, Zoster, this is not meant to be an all-inclusive list. Disposition Clinical Impression: Atypical chest pain, Chest pain Disposition: HOME SELF-CARE Condition: Good Instructions (If sedation given, give patient instructions): Chest Pain (ED) Is patient prescribed a controlled substance at d/c from ED?: No Referrals: Brandon Stanford MD [Primary Care Provider] - 1-2 days Time of Disposition: 18:30
[2022-09-17 18:14] LABS: Potassium 3.6 mmol/L (3.5-5.1); Total Protein 8.2 g/dL (6.3-8.2)
[2022-09-17 18:15] LABS: AST 31 U/L (17-59); Albumin 4.4 g/dL (3.5-5.0); Alkaline Phosphatase 52 U/L (38-126)
== END 2022-09-17 18:49 | disposition home or self-care (01) ==
LOC: EC 16:57
DX: R07.89 Other chest pain (principal); E11.9 Type 2 diabetes mellitus without complications; I10 Essential (primary) hypertension; F17.200 Nicotine dependence, unspecified, uncomplicated; F12.90 Cannabis use, unspecified, uncomplicated; Z79.899 Other long term (current) drug therapy
CPT/HCPCS: 36415; 71046; 80053; 84484; 85025; 93005; 99285

== ENCOUNTER 2024-03-21 14:13 | Emergency (ER) | payer MEDICARE ==
[2024-03-21 14:59] VITALS: RESP 20; TEMP 97.7
--- NOTE | 2024-03-21 15:08 | ED ---
ENT HPI - General Chief complaint: ENT Stated complaint: object stuck in ear Time Seen by Provider: 03/21/24 15:00 Source: patient, RN notes reviewed Mode of arrival: ambulatory Limitations: no limitations - History of Present Illness Initial comments: 38-year-old male presents emergency department chief complaint of left ear issues. Patient states that he has some drainage she states he was using a Q- tip and believes that the piece of it was still in his left ear. He states that his nephew looked in his ear and saw something white. Patient denies any other associated symptoms. - Related Data Home Medications Medication Instructions Recorded Confirmed Ammonium Lactate Cream [Lac-Hydrin 1 applic TOPICAL DAILY 06/10/22 06/10/22 12% Cream] Furosemide [Lasix] 40 mg PO DAILY 06/10/22 06/10/22 HYDROcodone/APAP 10-325MG [[place] 1 tab PO Q6H PRN 06/10/22 06/10/22 10-325] amLODIPine 10 mg PO DAILY 06/10/22 06/10/22 Allergies Allergy/AdvReac Type Severity Reaction Status Date / Time No Known Allergies Allergy Verified 03/21/24 14:53 Review of Systems ROS Statement: Those systems with pertinent positive or pertinent negative responses have been documented in the HPI. ROS Other: All systems not noted in ROS Statement are negative. Past Medical History Past Medical History: Diabetes Mellitus, Hypertension, Sleep Apnea/CPAP/BIPAP Additional Past Medical History / Comment(s): supposed to use CPAP, swelling legs & feet, joint & back pain, rectal bleeding for awhile, "pre-diabetic" History of Any Multi-Drug Resistant Organisms: None Reported Past Surgical History: Adenoidectomy, Tonsillectomy Additional Past Surgical History / Comment(s): myringotomy & tubes Past Anesthesia/Blood Transfusion Reactions: No Reported Reaction Past Psychological History: No Psychological Hx Reported Smoking Status: Current every day smoker Past Alcohol Use History: Rare Past Drug Use History: Marijuana - Past Family History Mother Family Medical History: No Reported History General Exam Limitations: no limitations General appearance: alert, in no apparent distress Head exam: Present: atraumatic, normocephalic, normal inspection Eye exam: Present: normal appearance, PERRL, EOMI. Absent: scleral icterus, conjunctival injection, periorbital swelling ENT exam: Present: normal oropharynx, mucous membranes moist, TM's normal bilaterally. Absent: normal exam, normal external ear exam (Mild erythema, white coating noted of the left EAC) Neck exam: Present: normal inspection, full ROM. Absent: tenderness, meni ngismus, lymphadenopathy Respiratory exam: Present: normal lung sounds bilaterally. Absent: respiratory distress, wheezes, rales, rhonchi, stridor Cardiovascular Exam: Present: regular rate, normal rhythm, normal heart sounds. Absent: systolic murmur, diastolic murmur, rubs, gallop, clicks Course Vital Signs 03/21/24 14:53 Temperature 97.7 F Pulse Rate 83 Respiratory 20 Rate Blood Pressure 182/107 O2 Sat by Pulse 96 Oximetry Medical Decision Making - Medical Decision Making Was pt. sent in by a medical professional or institution ([facility], LOAN SERVICING SPECIALIST, urgent care, hospital, or half-way...) When possible be specific @ -No Did you speak to anyone other than the patient for history (EMS, parent, family, police, friend...)? What history was obtained from this source @ -No Did you review nursing and triage notes (agree or disagree)? Why? @ -I reviewed and agree with nursing and triage notes Were old charts reviewed (outside hosp., previous admission, EMS record, old EKG, old radiological studies, urgent care reports/EKG's, half-way records)? Report findings @ -No old charts were reviewed Differential Diagnosis (chest pain, altered mental status, abdominal pain women, abdominal pain men, vaginal bleeding, weakness, fever, dyspnea, syncope, headache, dizziness, GI bleed, back pain, seizure, CVA, palpatations, mental health, musculoskeletal)? @ -Okay external otitis media, EAC foreign body EKG interpreted by me (3pts min.). @ -None X-rays interpreted by me (1pt min.). @ -None done CT interpreted by me (1pt min.). @ -None done U/S interpreted by me (1pt. min.). @ -None done What testing was considered but not performed or refused? (CT, X-rays, U/S, labs)? Why? @ -None What meds were considered but not given or refused? Why? @ -None Did you discuss the management of the patient with other professionals ( professionals i.e. Dr., PA, LOAN SERVICING SPECIALIST, lab, RT, psych nurse, director of social services, clothing sales assistant, teacher, correction officer penitentiary, manager of case)? Give summary @ -No Was smoking cessation discussed for >3mins.? @ -No Was critical care preformed (if so, how long)? @ -No Were there social determinants of health that impacted care today? How? (Homelessness, low income, unemployed, alcoholism, drug addiction, transportation, low edu. Level, literacy, decrease access to med. care, intermediate, rehab)? @ -No Was there de-escalation of care discussed even if they declined (Discuss DNR or withdrawal of care, Hospice)? DNR status @ -No What co-morbidities impacted this encounter? (DM, HTN, Smoking, COPD, CAD, Cancer, CVA, ARF, Chemo, Hep., AIDS, mental health diagnosis, sleep apnea, morbid obesity)? @ -None Was patient admitted / discharged? Hospital course, mention meds given and route, prescriptions, significant lab abnormalities, going to OR and other pertinent info. @ -Discharge patient has no evidence of foreign body left ear patient does have thick white coating concerning for otitis externa was placed on Ciprodex. Undiagnosed new problem with uncertain prognosis? @ -No Drug Therapy requiring intensive monitoring for toxicity (Heparin, Nitro, Insulin, Cardizem)? @ -No Were any procedures done? @ -No Diagnosis/symptom? @ -Otitis externa left Acute, or Chronic, or Acute on Chronic? @ -Acute Uncomplicated (without systemic symptoms) or Complicated (systemic symptoms)? @ -[Uncomplicated Side effects of treatment? @ -No Exacerbation, Progression, or Severe Exacerbation? @ -No Poses a threat to life or bodily function? How? (Chest pain, [place], [place], pneumonia, PE, COPD, DKA, ARF, appy, cholecystitis, CVA, Diverticulitis, Homicidal, Suicidal, threat to staff... and all critical care pts) @ -No Disposition Clinical Impression: Otitis externa Disposition: HOME SELF-CARE Condition: Stable Instructions (If sedation given, give patient instructions): Swimmer's Ear (ED) Additional Instructions: Please use eardrops 4 drops twice daily for 7 days. Please return to the Emergency Department if symptoms worsen or any other concerns. Is patient prescribed a controlled substance at d/c from ED?: No Referrals: Brandon Stanford MD [Primary Care Provider] - 1-2 days Time of Disposition: 15:07
[2024-03-21] MEDS: CIPROFLOXACIN-DEXAMETH 0.3-0.1% DROPS 7.5 ML BTL LEFT EAR STA (15:29)
[2024-03-21 15:36] VITALS: BP 178/89; PULSE 81
== END 2024-03-21 17:22 | disposition home or self-care (01) ==
LOC: EC 14:13
DX: H60.92 Unspecified otitis externa, left ear (principal); F17.200 Nicotine dependence, unspecified, uncomplicated
CPT/HCPCS: 99282

== ENCOUNTER → 2024-10-17 | Outpatient (CLI) | payer MEDICARE, OTHER ==
[2024-10-17 14:47] VITALS: BP 169/111; PULSE 80; RESP 18; TEMP 98.3
--- NOTE | 2024-10-17 16:19 | P.PN ---
Subjective Progress Note Date: 10/17/24 This is a 39-year-old -[place] male patient who is coming in for a follow-up at the sleep center regarding his obstructive sleep apnea. This patient is extremely unreliable and noncompliant. He continues to make visitations at the sleep center without showing effort on pursuing his sleep apnea treatment. In summary, the patient has been diagnosed having severe NOREEN with an AHI of 109. He is post UPPP. I have worked with him on multiple occasions trying to make the treatment successful. He continues to have very poor sleep hygiene measures and very irregular sleep schedule and he failed to comply to treatment. For now, the patient has a VPAP auto machine which is set at a EPAP minimum of 10 and a maximum pressure of 22 and a pressure support of 4. During his last visit here at the sleep center in August 2024, the patient showed interest in going back on CPAP therapy. The patient was quite symptomatic, snoring loud, having witnessed apneas and he was excessively somnolent and sleepy. He was waking up choking and gasping for air. His Wilmer score was 22. Based on that, I had a lengthy discussion with him and ask him to regulate his sleep schedule and I suggested restarting BiPAP therapy at the same level of pressure. On today's evaluation, the patient is coming back. He broke his BiPAP machine with him and I noted that the patient has not used his machine at all. He brought with him an old mask, no tubes, very filthy filter that has not been replaced for a long time. He remains actively symptomatic. His functionality is very much impaired. He continues to have a high Wilmer score which was estimated to be at 19. He has poorly controlled blood pressure and his blood pressure continues to be persistently elevated. Denies having any chest pain. No cardiac arrhythmias. He constantly naps. No sleep paralysis. No hallucinations. No cataplexy. Medication list, the patient failed to produce or bring with him his medication list Vitals His blood pressure is 178/120, pulse is 80, respirations 18, weight is 398 and a body mass index is 52.5 with a temperature of 98.3 The patient appeared well nourished and normally developed. Vital signs as documented. The patient is morbidly obese. The patient has UPPP and his soft palate is essentially absent. Head exam is unremarkable. No scleral icterus or corneal arcus noted. Neck is without jugular venous distension, thyromegaly, or carotid bruits. Carotid upstrokes are brisk bilaterally. Lungs are clear to auscultation and percussion. Cardiac exam reveals the PMI to be normally sized and situated. Rhythm is regular. First and second heart sounds normal. No murmurs, rubs or gallops. Abdominal exam reveals normal bowel sounds, no masses, no organomegaly and no aortic enlargement. Patient is morbidly obese and abdominal organs cannot be palpated. Extremities show trace edema lower extremities and both femoral and pedal pulses are normal. Examination of the skin revealed no evidence of significant rashes, suspicious appearing nevi or other concerning lesions. Neurologically, the patient is awake and alert and the patient does not have any focal neurological deficit. Cranial nerves are essentially intact. Assessment Obstructive sleep apnea, severe with a baseline AHI of 109, post UPPP. Original diagnosed with established back in 2020. The patient was unable to demonstrate adequate compliancy. He continued to have a very irregular sleep schedule and poor sleep hygiene measures and the patient seems to be not committed to treatment. As such, the treatment was discontinued. Over the past few years, the patient has lost around 20 pounds and he showed interest in resuming the treatment. He has a CPAP auto at home which is set at a EPAP minimum of 10 and maximum pressure of 22 and a pressure support of 4. Chronic hypersomnia, Wilmer score of 22 Morbid obesity with a BMI of 54.2 Hypertension with poorly controlled blood pressure Diabetes mellitus Chronic back pain Plan On today's evaluation, the patient stated that he does not have any masks to restart treatment. Also, he expressed concerns that the pressures utilized were quite elevated. I educated the patient back again on the importance of using his BiPAP therapy. I made some adjustments that I placed the patient on EPAP minimum of 5 and a maximum of 20 with a pressure support of 4. I provided them a AirFit F40 fullface mask. I was unable to provide him into an the filter. I asked him to go to his DME and a prescription was sent to [facility] for regular tubing and filters. In summary, patient has severe and complicated obstructive sleep apnea. I am still doubting his commitment to CPAP/BiPAP therapy. He is unable to regulate his sleep schedule. He continues to have poor sleep hygiene measures. I had a lengthy discussion with him regarding those issues. At the end of our discussion, he made a commitment to regulate his sleep schedule and we established a goal to sleep between 10 PM and 7 AM in the morning. Again, I also asked the patient to bring in his full medication list. He stated that he is taking several antihypertensive medications and Ozempic. Would like to review those medications. He was noted to be persistently hypertensive on various visits. Encourage weight loss and the patient has lost around 20 pounds since his last evaluation I scheduled a follow-up visit with this patient and 6 weeks time. Objective - Vital Signs Vital signs: Vital Signs Temp 98.3 F 10/17/24 14:43 Pulse 80 10/17/24 14:43 Resp 18 10/17/24 14:43 BP 169/111 10/17/24 14:43 Pulse Ox 93 L 10/17/24 14:43 FiO2 Intake & Output 10/16/24 10/17/24 10/17/24 18:59 06:59 18:59 Weight 180.586 kg
== END ==
LOC: 3 N SLEEP 14:17
PROVIDERS: ATTEND Internal Medicine Critical Care Medicine
DX: G47.33 Obstructive sleep apnea (adult) (pediatric) (principal); E66.01 Morbid (severe) obesity due to excess calories; I10 Essential (primary) hypertension; E11.9 Type 2 diabetes mellitus without complications; G89.29 Other chronic pain; Z68.43 Body mass index [BMI] 50.0-59.9, adult; Z99.89 Dependence on other enabling machines and devices
CPT/HCPCS: 99212